=== PATIENT | female | born 1985 | race Caucasian/White ===

== ENCOUNTER 2018-02-09 17:15 | Emergency (ER) | payer MEDICAID ==
[~2018-02-09] VITALS: Ht 172.7 cm; Wt 60.0 kg
[~2018-02-09 17:15] MED LIST: ALPR2TAB2 PO; AZIT500T PO; CARB200T PO; CARI350T PO; CEFD300C37 PO; KETO10TA PO; METH-356 PO; METR500T PO; PHEN100C PO; QUET100T4 PO
[2018-02-09] MEDS ORDERED: LEVE500T53 PO (17:25)
[2018-02-09] MEDS ORDERED: LAMO100T5 PO (17:25)
[2018-02-09] MEDS ORDERED: CLON1TAB PO (17:25)
[2018-02-09 17:51] LABS: MICROSCOPIC NOT IND
[2018-02-09 17:52] LABS: CULTURE INDICATED? NO
[2018-02-09 18:31] VITALS: BP 112/74
== END 2018-02-09 19:21 | disposition home or self-care (01) ==
LOC: ED 17:30
DX: O99.322 Drug use complicating pregnancy, second trimester (principal); F11.229 Opioid dependence with intoxication, unspecified; O99.342 Other mental disorders complicating pregnancy, second trimester; Z3A.19 19 weeks gestation of pregnancy; Z87.891 Personal history of nicotine dependence
CPT/HCPCS: 36415; 76805; 81003; 84702; 99284

== ENCOUNTER 2018-02-25 00:20 | Emergency (ER) | payer MEDICAID ==
[~2018-02-25] VITALS: Ht 170.2 cm; Wt 64.5 kg
[~2018-02-25 00:20] MED LIST changes: +CLON1TAB PO; +LAMO100T5 PO; +LEVE500T53 PO; -METH-356 PO; +METH10TA2 PO
[2018-02-25 00:22] VITALS: BP 113/74
== END 2018-02-25 00:27 | disposition home or self-care (01) ==
LOC: ED 00:20
DX: O99.342 Other mental disorders complicating pregnancy, second trimester (principal); F41.9 Anxiety disorder, unspecified; Z3A.20 20 weeks gestation of pregnancy; M54.9 Dorsalgia, unspecified; R51 Headache; G89.29 Other chronic pain; Z88.0 Allergy status to penicillin; Z88.8 Allergy status to other drugs, medicaments and biological substances
CPT/HCPCS: 99283

== ENCOUNTER 2019-01-11 15:59 | Emergency (ER) | payer MEDICAID ==
[~2019-01-11] VITALS: Ht 172.7 cm; Wt 55.3 kg
--- NOTE | 2019-01-11 16:23 | NUR ---
PT HAS CO OF FEVER. PT DENIES V/D. SOME NAUSEA. PT IS FEBRILE 100.5. NO COUGH OR SORE THROAT. HR TACHY AT 117. PT IS NOT IN ANY DISTRESS AT THIS TIME. DID NOT RECIEVE FLUT SHOT YET. WAITING FOR FURTHER ORDERS
[2019-01-11] MEDS ORDERED: KETOROLAC 30 MG/1 ML ONE (16:37)
[2019-01-11 16:52] LABS: MICROSCOPIC INDICATED
[2019-01-11 16:53] LABS: CULTURE INDICATED? YES
[2019-01-11 17:00] LABS: RAPID INFLUENZA A Negative (Negative); RAPID INFLUENZA B Negative (Negative)
[2019-01-11] MEDS ORDERED: KETOROLAC 30 MG/1 ML IVPush ONE (17:00)
[2019-01-11] MEDS ORDERED: SODIUM CHLORIDE 0.9% 1,000ML IVBOLUS ONE (17:00)
[2019-01-11] MEDS ORDERED: KETOROLAC 30 MG/1 ML IM ONE (17:00)
[2019-01-11] MEDS ORDERED: KETOROLAC 60 MG/2 ML ONE (17:06)
--- NOTE | 2019-01-11 17:13 | NUR ---
PT AMUBLATED TO BATHROOM FOR UA. CXR COMPLETE. LABS DRAWN. MD MCMULLEN WO IV. MEDS CHANGED TO IM. MEDICATED PER ORDERS
[2019-01-11 17:30] VITALS: BP 135/82
[2019-01-11 17:32] LABS: ALBUMIN 3.5 g/dL (3.4-5.0); ANION GAP 6 mmol/L (5-15); CALCIUM 8.5 mg/dL (8.5-10.1); CHLORIDE 101 mmol/L (98-107)
[2019-01-11 17:34] LABS: BASOPHILS # (AUTO) 0.02 x10^3/uL (0-0.1); BASOPHILS % (AUTO) 0 % (0-1); EOSINOPHILS # (AUTO) 0.01 x10^3/uL (0-0.4); EOSINOPHILS % (AUTO) 0 % (1-7); LYMPHOCYTES # (AUTO) 1.31 x10^3/uL (1-3.4); LYMPHOCYTES % (AUTO) 12 % (22-44); MD NO; MEAN CORPUSCULAR HGB CONC 32.1 g/dL (32.4-35.8); MEAN CORPUSCULAR VOLUME 84.3 fL (80-100); MEAN PLATELET VOLUME 7.1 fL (7.4-10.4); MONOCYTES # (AUTO) 0.85 x10^3/uL (0.2-0.8); MONOCYTES % (AUTO) 8 % (2-9); NEUTROPHILS # (AUTO) 9.07 x10^3/uL (1.8-6.8); NEUTROPHILS % (AUTO) 81 % (42-75); PLATELET COUNT 368 x10^3/uL (130-400); RED BLOOD COUNT 4.82 x10^6/uL (3.82-5.3)
[2019-01-11 17:37] LABS: ALANINE AMINOTRANSFERASE 76 U/L (12-78); ALKALINE PHOSPHATASE 88 U/L (45-117); BILIRUBIN,TOTAL 0.8 mg/dL (0.2-1.0); CREATININE 0.73 mg/dL (0.55-1.02); TOTAL PROTEIN 7.7 g/dL (6.4-8.2)
[2019-01-11] MEDS ORDERED: LIDOCAINE-MPF 1%, 2ML ONE (18:22)
[2019-01-11] MEDS ORDERED: CEFAZOLIN 1,000 MG ONE (18:22)
[2019-01-11] MEDS ORDERED: CEFTRIAXONE 1,000 MG ONE (18:26)
[2019-01-11] MEDS ORDERED: CEFTRIAXONE 1,000 MG IM ONE (18:30)
--- NOTE | 2019-01-11 18:38 | NUR ---
Patient/Caregiver given discharge instructions and they have confirmed that they understand the instructions. Patient ambulatory with steady gait.
== END 2019-01-11 18:40 | disposition home or self-care (01) ==
LOC: ED 17:40
DX: N10 Acute pyelonephritis (principal); N39.0 Urinary tract infection, site not specified
CPT/HCPCS: 36415; 71046; 80053; 81001; 84703; 85025; 87077; 87086; 87400; 96372; 96374; 99284; J0696; J1885; J7030; 87186